=== PATIENT | female | born 1980 | race African-American/Black ===

== ENCOUNTER 2021-05-13 08:25 | Day surgery (SDC) | payer MEDICAID, SELFPAY ==
[~2021-05-13] VITALS: Ht 175.3 cm; Wt 117.9 kg
[2021-05-13] MEDS ORDERED: DIPHENHYDRAMINE INJ 50 MG/ML VIAL ONE (10:02)
[2021-05-13] MEDS ORDERED: MIDAZOLAM HCL 5 MG/5 ML VIAL ONE (10:03)
[2021-05-13 14:07] VITALS: BP_SYST 151
== END 2021-05-13 14:33 | disposition home or self-care (01) ==
LOC: SDS 08:25 → SMU 09:26 → SDS 14:33 → SMU 14:33
PROVIDERS: ATTEND Internal Medicine
DX: M51.16 Intervertebral disc disorders with radiculopathy, lumbar region (principal); Z20.822 Contact with and (suspected) exposure to COVID-19; Z53.8 Procedure and treatment not carried out for other reasons
CPT/HCPCS: 36415; J1200; J2250